=== PATIENT | female | born 1965 | race African-American/Black ===

== ENCOUNTER 2023-05-31 16:21 | Emergency (ER) | payer MEDICAID, OTHER ==
[~2023-05-31] VITALS: Ht 157.5 cm; Wt 49.4 kg
[~2023-05-31 16:21] MED LIST: ATAZ300C PO; DIVA-75 PO; FISH1CAP29 PO; PARO10TA74 PO; PRAV10TA35 PO; RISP-29 PO; RITO100T; RITO100T PO; [UNRECOGNIZED DRUG - OTHER]; [UNRECOGNIZED DRUG - OTHER]
[2023-05-31 17:12] VITALS: BP 114/51; PULSE 82; RESP 16; TEMP 98; O2SAT 100
[2023-05-31] MEDS ORDERED: BENZ100C86 MT (17:43)
[2023-05-31] MEDS ORDERED: ACET-2708 MT (17:43)
== END 2023-05-31 17:56 | disposition home or self-care (01) ==
LOC: ER 16:21
DX: J06.9 Acute upper respiratory infection, unspecified (principal); J45.909 Unspecified asthma, uncomplicated; Z79.899 Other long term (current) drug therapy
CPT/HCPCS: 99283